=== PATIENT | female | born 1970 ===

== ENCOUNTER 2024-06-03 12:00 | Inpatient (IN) | payer OTHER ==
[~2024-06-03] VITALS: Ht 162.6 cm; Wt 69.9 kg
[2024-06-03] MEDS ORDERED: HYDRODIURIL12.5 MG PO (13:06)
[2024-06-03] MEDS ORDERED: LOSARTAN POTASS50 MG PO (13:06)
[2024-06-03 13:07] VITALS: BP 137/87
[2024-06-09] MEDS ORDERED: CEFTRIAXONE SODIUM 2,000 MG in 0.9 % SODIUM CHLORIDE 50 ML IV ONE (16:15)
[2024-06-09] MEDS ORDERED: METRONIDAZOLE/SODIUM CHLORIDE 200 ML IV ONE (16:15)
[2024-06-09] MEDS ORDERED: BUPIVACAINE HCL 30 ML VIAL IJ ONE (16:30)
[2024-06-09] MEDS ORDERED: LIDOCAINE HCL 1%/EPINEPHRINE 20ML VIAL IJ ONE (16:30)
[2024-06-09] MEDS ORDERED: DEXAMETHASONE SODIUM PHOSPHATE 4 MG/ML VIAL ONE (17:14)
[2024-06-09] MEDS ORDERED: PANTOPRAZOLE SODIUM 40 MG/VIAL VIAL ONE (17:43)
[2024-06-09] MEDS ORDERED: ENALAPRILAT DIHYDRATE 1.25 MG/ML VIAL IV PRN (21:00)
[2024-06-09] MEDS ORDERED: SODIUM CHLORIDE 0.45 % 1,000 ML IV SCH (21:00)
[2024-06-09] MEDS ORDERED: PANTOPRAZOLE SODIUM 40 MG/VIAL VIAL IV PUSH SCH (21:00)
[2024-06-09] MEDS ORDERED: ONDANSETRON HCL 2 MG/ML VIAL IV PRN (21:00)
[2024-06-10 00:45] VITALS: BP 101/67; O2SAT 96
[2024-06-10] MEDS ORDERED: TRAMADOL HCL 50 MG TABLET PO SCH (01:00)
[2024-06-10] MEDS ORDERED: ACETAMINOPHEN 500 MG GEL..CAP PO SCH (01:00)
[2024-06-10 08:00] VITALS: BP 109/72; O2SAT 95
[2024-06-10] MEDS ORDERED: LOSARTAN/HYDROCHLOROTHIAZIDE 1 UDTAB TABLET PO SCH (09:00)
[2024-06-10] MEDS ORDERED: CYCLOBENZAPRINE HCL 5 MG TABLET PO SCH (09:00)
== END 2024-06-10 14:11 | disposition home or self-care (01) | DRG 627 ==
LOC: O/R 06-09 05:50 → SURH 06-09 07:00 → SURG 06-09 21:23
PROVIDERS: ADMIT Surgery; ATTEND Surgery
PROC: 0GTL0ZZ Resection of Right Superior Parathyroid Gland, Open Approach (ICD-10-PCS; 2024-06-09)
PROC: 0GTM0ZZ Resection of Left Superior Parathyroid Gland, Open Approach (ICD-10-PCS; 2024-06-09)
PROC: 0GTN0ZZ Resection of Right Inferior Parathyroid Gland, Open Approach (ICD-10-PCS; principal; 2024-06-09 07:00)
DX: D35.1 Benign neoplasm of parathyroid gland (principal)